=== PATIENT | male | born 1945 | race African-American/Black ===

== ENCOUNTER 2016-06-02 22:46 | Inpatient (IN) | payer OTHER ==
--- NOTE | ~2016-06-02 | EGD ---
EGD REPORT [facility] [address] [address] NAME: JEFE HENDRICKS : [birth year] STATUS : ADM IN PAT#: [id number] AGE: 70 ADM/REG DATE : 06/02/16 MR#: [id number] REPORT SERV DATE: 06/05/16 DICTATED BY: ANAT CAN DATE: 06/05/16 REPORT STATUS : Draft [facility]ANSCRIBED [facility]: [facility] DATE: 06/05/16 Endoscopy Center Patient Name: Jefe Hendricks Date of : 1945 Attending MD: ANAT CAN MD Procedure Date No Time: 06/05/2016 Procedure: Colonoscopy Indications: Melena Medicines: as per anesthesia Complications: No immediate complications. Procedure: Pre-Anesthesia Assessment: - ASA Grade Assessment: III - A patient with severe systemic disease. After I obtained informed consent, the scope was passed under direct vision. Throughout the procedure, the patient's blood pressure, pulse, and oxygen saturations were monitored continuously. The PCF [id number] was introduced through the anus and advanced to the cecum, identified by appendiceal orifice and ileocecal valve. The colonoscopy was somewhat difficult due to significant looping and a tortuous colon. The patient tolerated the procedure. The quality of the bowel preparation was fair. Findings: The perianal and digital rectal examinations were normal. Internal hemorrhoids were found during endoscopy and were mild. Impression: - Internal hemorrhoids. Recommendation: - Continue present medications. Procedure Code(s): --- Professional --- 28298, Colonoscopy, flexible, proximal to splenic flexure; diagnostic, with or without collection of specimen(s) by brushing or washing, with or without colon decompression (separate procedure) Diagnosis Code(s): --- Professional --- K64.8, Other hemorrhoids K92.1, Melena CPT copyright 2013 [employer]. All rights reserved. EGD REPORT [facility] [address] [address] NAME: JEFE HENDRICKS : [birth year] STATUS : ADM IN [facility]#: [id number] AGE: 70 ADM/REG DATE : 06/02/16 MR#: [id number] REPORT SERV DATE: 06/05/16 DICTATED BY: ANAT CAN. DATE: 06/05/16 REPORT STATUS : Draft TRANSCRIBED BY: [employer] SERVICES DATE: 06/05/16 The codes documented in this report are preliminary and upon regional manager review may be revised to meet current compliance requirements. ANAT CAN MD 06/05/2016 2:30 PM This report has been signed electronically. Number of Addenda: 0 Note Initiated On: 06/05/2016 1:17 PM Scope Withdrawal Time 0 hours 6 minutes 2 seconds [address] [id number]
--- NOTE | ~2016-06-02 | DS ---
Discharge Summary [facility] [address] [place]. [address] NAME: KHOI HENDRICKS : [birth year] STATUS : ADM IN [facility]#: [id number] AGE: 70 ADM/REG DATE : 06/02/16 MR#: [id number] REPORT SERV DATE: 06/06/16 DICTATED BY: DATE: REPORT STATUS : Draft TRANSCRIBED BY: MODL DATE: 06/06/16 ADMISSION DATE: 06/02/2016 DISCHARGE DATE: 06/06/2016 DISCHARGE DIAGNOSES: 1. Acute blood loss anemia. 2. Acute kidney injury. 3. Chronic kidney disease, stage 3. 4. Hypertension. 5. Anemia. 6. Coronary artery disease. 7. Chronic obstructive pulmonary disease. CONSULTATION: GI with Dr. Almeida. PROCEDURES AND IMAGIN. 06/03/2006 portable chest x-ray showed no acute cardiopulmonary abnormality. 2. 06/05/2016 EGD showed normal esophagus, normal stomach, normal examined duodenum. 3. 06/06/2016 small bowel follow-through showed that the small bowel was intrinsically normal in appearance and small bowel transit time was less than 90 minutes. HOSPITAL COURSE: This is a 70-year-old black male presenting with lethargy, cold intolerance, melena, evidence of acute blood loss anemia. Please see H and P by Dr. Virgen dictated on 06/03/2016. The patient has a history of having a stent as well as a femoral- popliteal bypass and right ttwii-odi-ejrr amputation, which is followed by Dr. Reyes. The patient is on Plavix for his continued PAD. This is felt to be some other cause of his acute blood loss anemia. During discussion with the patient, the patient states that he has frequent nosebleeds that are pretty severe. According to his spouse, he gets one every several weeks. It has been discussed with the patient due to negative GI testing that the patient needs to follow up with Ear, Nose, and Throat doctor, and we will be requesting Case Management to assist us in finding one that is acceptable to his insurance. The patient states that he has had no nosebleeds while he is here. The patient sees Dr. Verdugo as his GI doctor. The patient's average creatinine is approximately 1.40 and with hydration has stabilize during this admission. The patient is experiencing constipation with his iron intake. The patient has received 2 units of packed red blood cells during his stay, and his hemoglobin has leveled out at 8.5 with hematocrit of 27.7. Of significance, his iron studies; his TIBC was 516, iron was 15, ferritin is 10, folate is 11.4, and TSH is 0.308. At this time, the patient states that he is warmer than he was upon admission and can notice when he has significant anemia due to his cold intolerance. PHYSICAL EXAMINATION: VITAL SIGNS: Blood pressure is 176/77, O2 saturation is 100% on room air, temperature is 97.4, respirations are 18, and heart rate is 49. HEENT: Head is atraumatic, normocephalic. Pupils are equal, round, reactive to light and accommodation. Sclerae are clear and nonicteric. The patient is edentulous. NECK: Supple with no palpable lymphadenopathy or thyromegaly. Neck veins are flat. Discharge Summary [address] [place]. [address] NAME: KHOI HENDRICKS : [birth year] STATUS : ADM IN [facility]#: [id number] AGE: 70 ADM/REG DATE : 06/02/16 MR#: [id number] REPORT SERV DATE: 06/06/16 DICTATED BY: DATE: REPORT STATUS : Draft TRANSCRIBED BY: MODL DATE: 06/06/16 CARDIAC: The patient's heart rate is bradycardic but no obvious murmurs, rubs, or gallops. LUNGS: Clear to auscultation with normal respiratory effort. GI: Abdomen is soft, nontender, with active bowel sounds in all four quadrants. Normal bowel habitus. No palpable organomegaly. EXTREMITIES: No significant edema, clubbing, or cyanosis on his left lower extremity. Dorsalis pedis and posterior tibial pulses are palpable and toes are warm. The patient does have a right ddcir-acu-ljtm amputation. MUSCULOSKELETAL: The patient moves all extremities x4. He is ambulatory with a walker. SKIN: Warm and dry with normal color and turgor. NEUROLOGIC/PSYCHIATRIC: The patient is alert and oriented x4, pleasant, and appropriate. Cranial nerves 2 through 12 are grossly intact. Affect is bright. No apparent anxiety or depression. DISCHARGE DIET: The patient will be discharged on a cardiac diet. DISCHARGE MEDICATIONS: The patient will be on ascorbic acid 500 mg twice daily with meals, pravastatin 40 mg at bedtime, Coreg 25 mg twice daily, Colace 100 mg twice daily, ferrous sulfate 325 mg twice daily, Flonase spray once daily in both nostrils, gemfibrozil 600 mg twice daily, Prinivil 10 mg daily, Protonix 40 mg daily, Plavix 75 mg daily, aspirin 81 mg daily, and Protonix 40 mg daily. ALLERGIES: THE PATIENT HAS NO KNOWN DRUG ALLERGIES. DISCHARGE INSTRUCTIONS: The patient is to follow up with his PCP in 7-10 days. The patient is also to follow up with an ENT physician regarding his frequent nosebleeds within 7-10 days. Should the patient have any more GI bleeding, the patient should follow up with Dr. Verdugo. Should he have any excessive nosebleeds or any other difficulties, he is to call PCP or present to the ER. This discharge took me approximately 25 minutes. Spent coordinating discharge care of this patient including [id number]-lg-[id number] encounter and summarization of the discharge. DUYEN/MODL Mimi Ellis NP / [id number] CC: MD Nataliia Mcwilliams M.D.
--- NOTE | ~2016-06-02 | EGD ---
EGD REPORT [facility] [address] [address] NAME: JEFE HENDRICKS : [birth year] STATUS : ADM IN PAT#: [id number] AGE: 70 ADM/REG DATE : 06/02/16 MR#: [id number] REPORT SERV DATE: 06/05/16 DICTATED BY: ANAT CAN DATE: 06/05/16 REPORT STATUS : Draft [facility]: [facility] DATE: 06/05/16 Endoscopy Center Patient Name: Jefe Hendricks Date of : 1945 Attending MD: ANAT CAN MD Procedure Date No Time: 06/05/2016 Procedure: Upper GI endoscopy Indications: Anemia, Melena, Personal history of peptic ulcer disease Medicines: as per anesthesia Complications: No immediate complications. Procedure: Pre-Anesthesia Assessment: - ASA Grade Assessment: III - A patient with severe systemic disease. After obtaining informed consent, the endoscope was passed under direct vision. Throughout the procedure, the patient's blood pressure, pulse, and oxygen saturations were monitored continuously. The GIF H190 [id number] was introduced through the mouth, and advanced to the third part of duodenum. The upper GI endoscopy was accomplished without difficulty. The patient tolerated the procedure. Findings: The examined esophagus was normal. The entire examined stomach was normal. The cardia and gastric fundus were normal on retroflexion. The examined duodenum was normal. Impression: - Normal esophagus. - Normal stomach. - Normal examined duodenum. Recommendation: - Continue present medications. Procedure Code(s): --- Professional --- 76362, Esophagogastroduodenoscopy, flexible, transoral; diagnostic, including collection of specimen(s) by brushing or washing, when performed (separate procedure) Diagnosis Code(s): --- Professional --- D64.9, Anemia, unspecified K92.1, Melena Z87.11, Personal history of peptic ulcer disease EGD REPORT [facility] [address] [place], [place] [address]. [address] NAME: JEFE HENDRICKS : [birth year] STATUS : ADM IN [facility]#: [id number] AGE: 70 ADM/REG DATE : 06/02/16 MR#: [id number] REPORT SERV DATE: 06/05/16 DICTATED BY: ANAT CAN. DATE: 06/05/16 REPORT STATUS : Draft TRANSCRIBED BY: [employer] SERVICES DATE: 06/05/16 CPT copyright 2013 [employer]. All rights reserved. The codes documented in this report are preliminary and upon hcc coders review may be revised to meet current compliance requirements. ANAT CAN MD 06/05/2016 1:56 PM This report has been signed electronically. Number of Addenda: 0 Note Initiated On: 06/05/2016 1:19 PM Scope Withdrawal Time 0 hours 0 minutes 0 seconds [address] [place], [place] [address]
--- NOTE | ~2016-06-02 | HP ---
History And Physical [place] [address] [place]. [address] NAME: KHOI HENDRICKS : [birth year] STATUS : ADM IN [facility]#: [id number] AGE: 70 ADM/REG DATE : 06/02/16 MR#: [id number] REPORT SERV DATE: 06/03/16 DICTATED BY: BETH DUCKWORTH DATE: 06/03/16 REPORT STATUS : Draft TRANSCRIBED BY: MODL DATE: 06/03/16 DATE OF ADMISSION: 06/02/2016 CHIEF COMPLAINT: This 70-year-old male presenting with lethargy, decreased energy, cold intolerance, melena, and evidence of acute blood loss anemia. HISTORY OF PRESENTING ILLNESS: The patient's history was obtained through careful interview with the patient and , coupled with review of [facility] [facility] [employer] medical records. The patient states that for several months, he has been feeling usually cold and has cold intolerance, but over the last month, he has had increasing lethargy, been sleeping a lot. He has felt decreased energy, severe fatigue, although he is usually active. He describes dyspnea on exertion. No cough. No chest pain. He has had orthostatics symptoms and occasionally feeling dizzy. He has had some mild headaches occasionally, but none in the last few days. No abdominal pain. He has occasional reflux symptoms with nausea, but no vomiting. Sometimes, he has had congestion in his upper respiratory area, but with no cough and he has had some slight sinus drainage. He has had intermittent "pretty severe" nosebleeds, the last was about two days ago and lasted about a half hour. He has noticed melena, but does take an iron supplement. No bright red blood per rectum. REVIEW OF SYSTEMS: Otherwise, a 14-point review of systems was obtained and was negative. PAST MEDICAL HISTORY: 1. Coronary artery disease. Previous records have described "severe multivessel disease"? but was told he should just have medical management and has never had a stent placed apparently. 2. Peripheral arterial disease with history of stent placement, femoropopliteal bypass and eventual right jloas-qtv-ifmr amputation, followed by Dr. Reyes. 3. Hypertension. 4. Diastolic congestive heart failure with left ventricular hypertrophy. 5. Elevated cholesterol. 6. Chronic kidney disease stage III. Baseline creatinine 1.3 to 1.5. 7. Peptic ulcer disease, seen by Dr. Verdugo. 8. Urinary tract infection, previously with E coli, Morganella, and Pseudomonas. 9. COPD. 10.Pancreatitis. 11.Fatty liver disease. PAST SURGICAL HISTORY: 1. Femoropopliteal bypass of the lower extremity. History And Physical [place] [address] [place]. [address] NAME: KHOI HENDRICKS : [birth year] STATUS : ADM IN [facility]#: [id number] AGE: 70 ADM/REG DATE : 06/02/16 MR#: [id number] REPORT SERV DATE: 06/03/16 DICTATED BY: BETH DUCKWORTH DATE: 06/03/16 REPORT STATUS : Draft TRANSCRIBED BY: MODL DATE: 06/03/16 2. Right pntca-eqy-vmko amputation. 3. Bilateral inguinal hernia repair. 4. Hemorrhoidectomy. ALLERGIES: NO KNOWN DRUG ALLERGIES. SOCIAL HISTORY: Continues to smoke, has smoked up to two packs per day since he is a teenager. Moderate use of alcohol, but has quit now. He is . He has no children. Retired, working for [employer], doing mcc work. Also used to work for [employer] FAMILY HISTORY: Stroke, heart disease. Father of meningitis. Mother of cerebral aneurysm. Brother of coronary artery disease. CURRENT MEDICATIONS: Include vitamin C, aspirin 81 mg p.o. daily, Coreg 25 mg p.o. b.i.d., Plavix 75 mg p.o. daily, Colace 100 mg p.o. b.i.d., iron supplement, Flonase, Lopid 600 mg p.o. b.i.d., Prevacid 30 mg p.o. daily, lisinopril 10 mg p.o. daily, and Pravachol 40 mg p.o. daily. PHYSICAL EXAMINATION: VITAL SIGNS: Temperature 99.4, pulse 61, blood pressure 129/62, respiratory rate 16, and O2 saturation 100% on room air. GENERAL: A pleasant, cooperative male, in no evidence of acute distress at this time. HEENT: Pupils equal, round, and reactive to light. The patient has conjunctival pallor, but no scleral icterus. Nares are patent. Oropharynx is clear of obstruction. No intraoral lesions. NECK: Trachea midline. No thyromegaly. LYMPH: No cervical lymphadenopathy. No supraclavicular lymphadenopathy. RESPIRATORY: Clear to auscultation at bases, maybe some scattered crackles, but no overt wheezes, no rales, no rhonchi. The patient has a nonlabored respiratory effort. CARDIOVASCULAR: Regular rate and rhythm. No murmurs, rubs, or gallops. No extremity edema is appreciated. ABDOMEN: Minimal epigastric abdominal discomfort. No guarding or rebound. Nondistended. No hepatosplenomegaly. DERMATOLOGICAL: Peripheral pallor. No cyanosis. EXTREMITIES: Warm and dry. PSYCHIATRIC: Normal affect. Good mood. Alert and oriented x3. LABORATORY DATA: White blood cell count 5.8, hemoglobin 6.7, hematocrit 23.2 with an MCV of 69, platelets 324. Sodium 140, potassium 4.4, chloride 109, bicarbonate 22, BUN 22, creatinine 1.54, glucose 94. Hemoccult stool was positive. INR 1.1. Liver enzymes within normal limits. ASSESSMENT AND PLAN: 1. Acute blood loss anemia with symptomatic anemia, likely a gradual onset though, subacutely over last month? We will transfuse blood. History And Physical [address] [address] NAME: KHOI HENDRICKS : [birth year] STATUS : ADM IN [facility]#: [id number] AGE: 70 ADM/REG DATE : 06/02/16 MR#: [id number] REPORT SERV DATE: 06/03/16 DICTATED BY: BETH DUCKWORTH DATE: 06/03/16 REPORT STATUS : Draft TRANSCRIBED BY: MODJose DATE: 06/03/16 [address] bleed. Place on IV proton pump inhibitor drip. 3. History of peptic ulcer disease. Hold Plavix and aspirin. Obtain a GI consult with Dr. Verdugo. 4. Coronary artery disease and peripheral arterial disease. Holding Plavix and aspirin because of gastrointestinal bleed. 5. Chronic obstructive pulmonary disease. Place on DuoNeb nebulizers. Check chest x-ray. KPL/MODL Beth Duckworth M.D. / [id number] CC: MD Nataliia Crowder M.D. Luis Verdugo M.D.
--- NOTE | ~2016-06-02 | CN ---
Consultation Report [facility] [address] [place]. [address] NAME: KHOI HENDRICKS : 41 STATUS : ADM IN [facility]#: [id number] AGE: 70 ADM/REG DATE : 06/02/16 MR#: [id number] REPORT SERV DATE: 06/03/16 DICTATED BY: MICHEL FRANCE DATE: 06/03/16 REPORT STATUS : Draft TRANSCRIBED BY: MODL DATE: 06/03/16 DATE OF CONSULTATION: HISTORY OF PRESENT ILLNESS: This patient had a history of anemia in the past. He has been worked up with endoscopic evaluation in the last few years. He had EGD in 2012 and he may have had a colonoscopy then. He had a colonoscopy in 2010 and had an adenoma removed. He has been feeling weak recently. He has had nosebleeds. He is on aspirin and Plavix. He states his stools are black, but this has not really been distanced for years. PAST MEDICAL HISTORY: 1. Coronary artery disease. 2. Peripheral artery disease with stent. 3. Right lqmtk-hyb-lfvf amputation. 4. Hypertension. 5. Diastolic heart failure. 6. Chronic kidney disease. 7. Fatty liver disease. 8. Positive smoker. CURRENT MEDICATIONS: Include aspirin, Plavix, iron supplement, and Prevacid. PHYSICAL EXAMINATION: GENERAL: Looks older than stated age, cooperative, no acute distress. VITAL SIGNS: Blood pressure 129/62. NECK: Trachea midline. CHEST: Clear. CARDIAC: Normal. ABDOMEN: Soft, nontender. EXTREMITIES: Right AKA amputation. REVIEW OF LABORATORY DATA: Going back to 04/2014, his hemoglobin was 8.2, 7.4 today. He is microcytic. Back in 2012, his iron was 15, iron-binding of 516. IMPRESSION: It sounds like chronic gastrointestinal blood loss. This has been evaluated in the past. His iron deficiency is at least dating back to 2012. This has probably contributed by aspirin and Plavix. He has had a history of adenoma in the past. PLAN: We will probably prep for re-endoscopic intervention. Also may consider a wireless capsule endoscopy. /CRISS Michel Consultation Report [facility] [address] [place]. [address] NAME: KHOI HENDRICKS : 41 STATUS : ADM IN PAT#: [id number] AGE: 70 ADM/REG DATE : 06/02/16 MR#: [id number] REPORT SERV DATE: 06/03/16 DICTATED BY: MICHEL FRANCE DATE: 06/03/16 REPORT STATUS : Draft TRANSCRIBED BY: MODL DATE: 06/03/16 Darius France / [id number] CC: MD Nataliia Crowder M.D. Alan Shikoh, M.D.
[2016-06-02 19:49] LABS: CALCIUM, SERUM 8.6 MG/DL (8.5-10.4); CHLORIDE, SERUM 109 MMOL/L (96-112); CHOL/HDL RATIO(NOT ORDER) 2.3 (0-5); CHOLESTEROL 103 MG/DL (< 200); CO2 (CARBON DIOXIDE) 21 MMOL/L (24-34); CREATININE 1.41 MG/DL (0.70-1.30); GFR AFRICAN AMERICAN 57 ML/MIN (>=60); GFR NON AFRICAN AMERICAN 49 ML/MIN (>=60); GLUCOSE, SERUM 89 MG/DL (60-99); HDL CHOLESTEROL 44 MG/DL (> 39); LDL CHOLESTEROL 48 MG/DL (< 130); NON-HDL CHOLESTEROL 59 MG/DL (< 160); SODIUM, SERUM 138 MMOL/L (135-148); TRIGLYCERIDE 57 MG/DL (< 150)
[2016-06-02 19:51] LABS: BUN (BLOOD UREA NITROGEN) 21 MG/DL (6-23)
[2016-06-02 21:00] LABS: MEAN PLATELET VOLUME 9.4 fL (9.2-13.0); PLATELET COUNT 339 10/3/uL (150-400); RBC DISTRIBUTION WIDTH 19.2 % (12.0-16.0); RED CELL COUNT 3.41 10/6/uL (4.7-6.1); WHITE BLOOD CELLS 4.9 10/3/uL (4.5-10.5)
[2016-06-02 21:15] LABS: HEMATOCRIT 23.7 % (40.0-51.0); HEMOGLOBIN 6.8 g/dL (13.6-17.8); MEAN CORPUS HGB CONC 28.7 g/dL (32.0-36.0); MEAN CORPUSCULAR HEMOGLOB 19.9 pg (26.0-34.0); MEAN CORPUSCULAR VOLUME 69.5 fL (80-100)
[~2016-06-02 22:46] MED LIST: ACET500CAP PO; ASAB PO; AUG875 PO; C25 PO; COREG12 PO; COREG25 PO; EZFE 200200 MG PO; FLONASE NAS; LOPID6 PO; LORTAB 5 PO; LOTE20 PO; PLAVIX PO; PRAVAC PO; PRAVACHOL40 MG PO; PREV30 PO; VITC500 PO; ZESTRIL40 MG PO
[2016-06-02 22:53] LABS: BASOPHILS ABSOLUTE 0.06 10/3/uL (0.0-0.16); EOSINOPHILS 3.1 %; EOSINOPHILS ABSOLUTE 0.18 10/3/uL (0.0-0.53); HEMATOCRIT 23.2 % (40.0-51.0); IMMATURE GRANULOCYTES 0.3 %; IMMATURE GRANULOCYTES ABSOLUTE 0.02 10/3/uL (0.0-0.11); LYMPHOCYTES 35.5 %; LYMPHOCYTES ABSOLUTE 2.05 10/3/uL (0.67-4.30); MEAN CORPUS HGB CONC 28.9 g/dL (32.0-36.0); MEAN CORPUSCULAR VOLUME 69.3 fL (80-100); MEAN PLATELET VOLUME 9.2 fL (9.2-13.0); MONOCYTES 8.3 %; MONOCYTES ABSOLUTE 0.48 10/3/uL (0.21-1.20); NEUTROPHILS 51.8 %; NEUTROPHILS ABSOLUTE 2.99 10/3/uL (2.02-8.40); PLATELET COUNT 324 10/3/uL (150-400); RED CELL COUNT 3.35 10/6/uL (4.7-6.1); WHITE BLOOD CELLS 5.8 10/3/uL (4.5-10.5)
[2016-06-02 22:55] LABS: HEMOGLOBIN 6.7 g/dL (13.6-17.8)
[2016-06-02 22:56] LABS: MANUAL DIFF NO %
[2016-06-02 23:01] LABS: INTERNATIONAL NORMAL RATI 1.1 UNITS (-); PARTIAL THROMBO TIME 26.1 SEC (22.5-37.2); PROTIME (NOT ORD) 14.3 SEC (12.0-14.5)
[2016-06-02 23:12] LABS: ALBUMIN 3.8 G/DL (3.5-5.0); ALKALINE PHOSPHATASE 59 U/L (45-117); BUN (BLOOD UREA NITROGEN) 22 MG/DL (6-23); CALCIUM, SERUM 8.6 MG/DL (8.5-10.4); CHLORIDE, SERUM 109 MMOL/L (96-112); CO2 (CARBON DIOXIDE) 22 MMOL/L (24-34); CREATININE 1.54 MG/DL (0.70-1.30); GFR AFRICAN AMERICAN 51 ML/MIN (>=60); GFR NON AFRICAN AMERICAN 44 ML/MIN (>=60); GLOBULIN 3.7 G/DL (2.5-4.1); GLUCOSE, SERUM 94 MG/DL (60-99); POTASSIUM, SERUM 4.4 MMOL/L (3.5-5.3); SGOT(AST) 6 U/L (5-40); SGPT(ALT) 12 U/L (5-65); SODIUM, SERUM 140 MMOL/L (135-148); TOTAL BILIRUBIN 0.2 MG/DL (0-1.2); TOTAL PROTEIN 7.5 G/DL (6.0-8.5)
[2016-06-02] MEDS ORDERED: EZFE 200200 MG PO (23:39)
[2016-06-02] MEDS ORDERED: PLAVIX PO (23:39)
[2016-06-02] MEDS ORDERED: COREG25 PO (23:39)
[2016-06-02] MEDS ORDERED: LOPID6 PO (23:40)
[2016-06-02] MEDS ORDERED: PREV30 PO (23:40)
[2016-06-02] MEDS ORDERED: DSS PO (23:40)
[2016-06-02] MEDS ORDERED: PRIN10 PO (23:41)
[2016-06-02] MEDS ORDERED: PRAVACHOL40 MG PO (23:41)
[2016-06-02] MEDS ORDERED: FLONASE NAS (23:42)
[2016-06-02] MEDS ORDERED: ASAB PO (23:43)
[2016-06-02] MEDS ORDERED: VITC500 PO (23:44)
[2016-06-03 08:18] LABS: BASOPHILS 1.5 %; BASOPHILS ABSOLUTE 0.07 10/3/uL (0.0-0.16); EOSINOPHILS 3.5 %; EOSINOPHILS ABSOLUTE 0.16 10/3/uL (0.0-0.53); HEMATOCRIT 24.6 % (40.0-51.0); HEMOGLOBIN 7.4 g/dL (13.6-17.8); LYMPHOCYTES 28.5 %; LYMPHOCYTES ABSOLUTE 1.29 10/3/uL (0.67-4.30); MEAN CORPUS HGB CONC 30.1 g/dL (32.0-36.0); MEAN CORPUSCULAR HEMOGLOB 21.3 pg (26.0-34.0); MEAN CORPUSCULAR VOLUME 70.9 fL (80-100); MEAN PLATELET VOLUME 9.1 fL (9.2-13.0); MONOCYTES 10.4 %; MONOCYTES ABSOLUTE 0.47 10/3/uL (0.21-1.20); NEUTROPHILS 56.1 %; NEUTROPHILS ABSOLUTE 2.53 10/3/uL (2.02-8.40); PLATELET COUNT 270 10/3/uL (150-400); RBC DISTRIBUTION WIDTH 20.4 % (12.0-16.0); RED CELL COUNT 3.47 10/6/uL (4.7-6.1); WHITE BLOOD CELLS 4.5 10/3/uL (4.5-10.5)
[2016-06-03 08:19] LABS: MANUAL DIFF NO %
[2016-06-03 08:24] LABS: INTERNATIONAL NORMAL RATI 1.2 UNITS (-); PARTIAL THROMBO TIME 30.9 SEC (22.5-37.2); PROTIME (NOT ORD) 15.4 SEC (12.0-14.5)
[2016-06-03 08:40] LABS: ALBUMIN 3.4 G/DL (3.5-5.0); ALKALINE PHOSPHATASE 53 U/L (45-117); BUN (BLOOD UREA NITROGEN) 19 MG/DL (6-23); CALCIUM, SERUM 8.5 MG/DL (8.5-10.4); CHLORIDE, SERUM 113 MMOL/L (96-112); CO2 (CARBON DIOXIDE) 21 MMOL/L (24-34); CREATININE 1.42 MG/DL (0.70-1.30); FERRITIN 8 NG/ML (26-388); GFR AFRICAN AMERICAN 57 ML/MIN (>=60); GFR NON AFRICAN AMERICAN 49 ML/MIN (>=60); GLOBULIN 3.4 G/DL (2.5-4.1); GLUCOSE, SERUM 83 MG/DL (60-99); POTASSIUM, SERUM 4.7 MMOL/L (3.5-5.3); SGOT(AST) 6 U/L (5-40); SGPT(ALT) 9 U/L (5-65); SODIUM, SERUM 143 MMOL/L (135-148); TOTAL BILIRUBIN 0.5 MG/DL (0-1.2); TOTAL PROTEIN 6.8 G/DL (6.0-8.5); TROPONIN I <0.02 NG/ML (<0.05)
[2016-06-03 08:43] LABS: ULTRASENSITIVE TSH 0.874 MCIU/ML (0.358-3.740)
[2016-06-03 08:49] LABS: PLATELET ESTIMATE ADQ (ADEQUATE); POIKILOCYTOSIS 1+ (5-10/OIF) (0-5/OIF); ROULEAUX FORMATION 1+
[2016-06-03 08:50] LABS: POLYCHROMASIA 1+ (2-5/OIF) (0-1/OIF); SCHISTOCYTES FEW (3-10/OIF)
[2016-06-04 05:32] LABS: BASOPHILS 0.9 %; BASOPHILS ABSOLUTE 0.06 10/3/uL (0.0-0.16); EOSINOPHILS 2.7 %; EOSINOPHILS ABSOLUTE 0.17 10/3/uL (0.0-0.53); HEMOGLOBIN 8.6 g/dL (13.6-17.8); IMMATURE GRANULOCYTES 0.2 %; IMMATURE GRANULOCYTES ABSOLUTE 0.01 10/3/uL (0.0-0.11); LYMPHOCYTES 29.6 %; LYMPHOCYTES ABSOLUTE 1.87 10/3/uL (0.67-4.30); MEAN CORPUS HGB CONC 30.4 g/dL (32.0-36.0); MEAN CORPUSCULAR HEMOGLOB 21.9 pg (26.0-34.0); MEAN PLATELET VOLUME 9.9 fL (9.2-13.0); MONOCYTES 12.2 %; MONOCYTES ABSOLUTE 0.77 10/3/uL (0.21-1.20); NEUTROPHILS 54.4 %; NEUTROPHILS ABSOLUTE 3.44 10/3/uL (2.02-8.40); PLATELET COUNT 292 10/3/uL (150-400); RBC DISTRIBUTION WIDTH 19.4 % (12.0-16.0); RED CELL COUNT 3.93 10/6/uL (4.7-6.1); WHITE BLOOD CELLS 6.3 10/3/uL (4.5-10.5)
[2016-06-04 05:38] LABS: HEMATOCRIT 28.3 % (40.0-51.0); MANUAL DIFF NO %
[2016-06-04 05:44] LABS: A/G RATIO 1.3 (0.7-1.9); ALBUMIN 3.5 G/DL (3.5-5.0); ALKALINE PHOSPHATASE 53 U/L (45-117); BUN (BLOOD UREA NITROGEN) 18 MG/DL (6-23); CALCIUM, SERUM 8.5 MG/DL (8.5-10.4); CHLORIDE, SERUM 112 MMOL/L (96-112); CO2 (CARBON DIOXIDE) 21 MMOL/L (24-34); CREATININE 1.36 MG/DL (0.70-1.30); GFR AFRICAN AMERICAN 60 ML/MIN (>=60); GFR NON AFRICAN AMERICAN 52 ML/MIN (>=60); GLUCOSE, SERUM 71 MG/DL (60-99); POTASSIUM, SERUM 5.4 MMOL/L (3.5-5.3); SGOT(AST) 8 U/L (5-40); SGPT(ALT) 8 U/L (5-65); SODIUM, SERUM 143 MMOL/L (135-148); TOTAL BILIRUBIN 0.5 MG/DL (0-1.2); TOTAL PROTEIN 6.2 G/DL (6.0-8.5)
[2016-06-04 05:50] LABS: GLOBULIN 2.7 G/DL (2.5-4.1)
[2016-06-04 06:17] LABS: ANISOCYTOSIS 1+ (5-10/OIF) (0-5/OIF); PLATELET ESTIMATE ADQ (ADEQUATE)
[2016-06-04 06:18] LABS: SCHISTOCYTES OCC (0-2/OIF)
[2016-06-05 06:23] LABS: BASOPHILS 1.1 %; BASOPHILS ABSOLUTE 0.07 10/3/uL (0.0-0.16); EOSINOPHILS 1.8 %; EOSINOPHILS ABSOLUTE 0.12 10/3/uL (0.0-0.53); HEMATOCRIT 27.7 % (40.0-51.0); HEMOGLOBIN 8.5 g/dL (13.6-17.8); IMMATURE GRANULOCYTES 0.2 %; IMMATURE GRANULOCYTES ABSOLUTE 0.01 10/3/uL (0.0-0.11); LYMPHOCYTES 20.5 %; LYMPHOCYTES ABSOLUTE 1.34 10/3/uL (0.67-4.30); MEAN CORPUS HGB CONC 30.7 g/dL (32.0-36.0); MEAN CORPUSCULAR HEMOGLOB 21.9 pg (26.0-34.0); MEAN CORPUSCULAR VOLUME 71.2 fL (80-100); MEAN PLATELET VOLUME 9.7 fL (9.2-13.0); MONOCYTES 9.9 %; MONOCYTES ABSOLUTE 0.65 10/3/uL (0.21-1.20); NEUTROPHILS 66.5 %; NEUTROPHILS ABSOLUTE 4.36 10/3/uL (2.02-8.40); PLATELET COUNT 281 10/3/uL (150-400); RBC DISTRIBUTION WIDTH 20.2 % (12.0-16.0); RED CELL COUNT 3.89 10/6/uL (4.7-6.1); WHITE BLOOD CELLS 6.6 10/3/uL (4.5-10.5)
[2016-06-05 06:25] LABS: MANUAL DIFF NO %
[2016-06-05 06:39] LABS: A/G RATIO 1.1 (0.7-1.9); ALBUMIN 3.6 G/DL (3.5-5.0); ALKALINE PHOSPHATASE 53 U/L (45-117); BUN (BLOOD UREA NITROGEN) 15 MG/DL (6-23); CALCIUM, SERUM 8.8 MG/DL (8.5-10.4); CHLORIDE, SERUM 111 MMOL/L (96-112); CO2 (CARBON DIOXIDE) 19 MMOL/L (24-34); CREATININE 1.38 MG/DL (0.70-1.30); GFR AFRICAN AMERICAN 59 ML/MIN (>=60); GFR NON AFRICAN AMERICAN 51 ML/MIN (>=60); GLOBULIN 3.2 G/DL (2.5-4.1); GLUCOSE, SERUM 69 MG/DL (60-99); POTASSIUM, SERUM 5.3 MMOL/L (3.5-5.3); SGOT(AST) 10 U/L (5-40); SGPT(ALT) 8 U/L (5-65); SODIUM, SERUM 141 MMOL/L (135-148); TOTAL BILIRUBIN 0.4 MG/DL (0-1.2); TOTAL PROTEIN 6.8 G/DL (6.0-8.5)
[2016-06-05 06:46] LABS: RBC MORPHOLOGY ABN (NORMAL)
[2016-06-06] MEDS ORDERED: [UNRECOGNIZED DRUG - OTHER] PO (12:25)
[2016-06-06] MEDS ORDERED: PROTONIX PO (12:26)
== END 2016-06-06 17:47 | disposition home or self-care (01) | DRG 812 ==
LOC: ER 22:46 → 2SO 23:45
PROVIDERS: Hospitalist; Internal Medicine; Internal Medicine Gastroenterology; Nurse Practitioner
PROC: 30233N1 Transfusion of Nonautologous Red Blood Cells into Peripheral Vein, Percutaneous Approach (ICD-10-PCS; 2016-06-03)
PROC: 0DJ08ZZ Inspection of Upper Intestinal Tract, Via Natural or Artificial Opening Endoscopic (ICD-10-PCS; principal; 2016-06-05 13:49)
PROC: 0DJD8ZZ Inspection of Lower Intestinal Tract, Via Natural or Artificial Opening Endoscopic (ICD-10-PCS; 2016-06-05 13:49)
DX: D62 Acute posthemorrhagic anemia (principal); N17.9 Acute kidney failure, unspecified; I13.2 Hypertensive heart and chronic kidney disease with heart failure and with stage 5 chronic kidney disease, or end stage renal disease; I50.32 Chronic diastolic (congestive) heart failure; K92.2 Gastrointestinal hemorrhage, unspecified; E87.5 Hyperkalemia; K76.0 Fatty (change of) liver, not elsewhere classified; J44.9 Chronic obstructive pulmonary disease, unspecified; D64.9 Anemia, unspecified; I25.10 Atherosclerotic heart disease of native coronary artery without angina pectoris; N18.3 Chronic kidney disease, stage 3 (moderate); R00.1 Bradycardia, unspecified; I73.9 Peripheral vascular disease, unspecified; K59.00 Constipation, unspecified; F17.210 Nicotine dependence, cigarettes, uncomplicated; Z87.11 Personal history of peptic ulcer disease; Z89.611 Acquired absence of right leg above knee
CPT/HCPCS: 36415; 36430; 71010; 74250; 80048; 80053; 80061; 82728; 83735; 83880; 84443; 84484; 85025; 85027; 85610; 85730; 86850; 86900; 86901; 86920; 94640; 96374; 99285; A9270-GY; C9113; P9016